=== PATIENT | female | born 2005 | race Two or more races ===

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

== ENCOUNTER 2024-09-05 17:22 | Emergency (ER) | payer OTHER, SELFPAY | END 2024-09-05 18:31 | disposition left against medical advice (07) | PROVIDERS: Emergency Provider Emergency Medicine | DX: Z53.21 Procedure and treatment not carried out due to patient leaving prior to being seen by health care provider (principal) ==

== ENCOUNTER 2024-11-19 07:35 | Emergency (ER) | payer OTHER, SELFPAY ==
[2024-11-19 07:46] VITALS: BP 119/67; PULSE 110; RESP 18; TEMP 37.6; O2SAT 97; BMI 24.2
--- NOTE | 2024-11-19 08:01 | ED_ITS ---
HPI - General Chief complaint: OB Stated complaint: N/V,DIZZY,23W ,H/O 3 MISCARRIAGES Time Seen by Provider: 11/19/24 08:09 Source: patient, family, EMS, RN notes reviewed and old records reviewed History of Present Illness ED Provider: Paz France PA-C HPI Narrative: 19-year-old female with a past medical history of GERD, anxiety, at 23 weeks gestation followed by [facility], presenting to the ED complaining of rhinorrhea, sore throat, nausea, vomiting, and low back pain since 02:00. Reports inability to tolerate p.o. secondary to nausea. Denies abdominal pain, vaginal bleeding/discharge, dysuria/hematuria Related Data Home Medications ?Medication ?Instructions ?Recorded ?Confirmed ibuprofen 200 mg capsule 200 mg PO Q6H PRN 04/07/21 1 03/30/21 Previous Rx's ?Medication ?Instructions ?Recorded ondansetron 4 mg disintegrating 4 mg PO Q8H PRN nausea and 09/04/20 tablet vomiting #7 tabs ondansetron HCl 4 mg tablet 4 mg PO Q8H PRN nausea and 08/28/22 vomiting 4 days #7 tabs cephalexin 250 mg capsule 250 mg PO Q6H 5 days #20 cap s 11/19/24 pyridoxine (vitamin B6) 25 mg 25 mg PO TID PRN nausea and 11/19/24 tablet vomiting #14 tabs Allergies Allergy/AdvReac Type Severity Reaction Status Date / Time No Known Allergies Allergy Verified 11/19/24 07:48 Review of Systems 2 Review of Systems: Yes all other systems are reviewed and are negative Constitutional: Constitutional: Reports as per [facility] Past Medical History Attestation statement: The following information was validated with the patient. Source: old records reviewed Medical History COVID-19 GERD (gastroesophageal reflux disease) Lactose intolerance Anxiety Cognitive impairment Surgical History No significant past surgical history Family History Family History Mother No problems noted. Social History Social History Alcohol intake: never Substance Use Type: Marijuana Advance Directives: No Advance Directives Information Provided: Yes Physical Exam 2 Vital Signs: Vital Signs: Last Vital Signs Temp 99.2 F 11/19/24 10:12 Pulse 88 11/19/24 10:12 Resp 16 11/19/24 10:12 BP 102/56 L 11/19/24 10:12 Pulse Ox 98 11/19/24 10:12 O2 Del Method Room Air 11/19/24 10:12 BMI result Body Mass Index 24.2 Const: Other: Actively vomiting General: cooperative and no acute distress Orientation/consciousness: p atient oriented x3 Limitations: no limitations HEENT: Head: Yes normal to inspection and Yes atraumatic Ears: hearing grossly normal bilaterally General nose exam: Normal external nose present Face and sinus: Yes normal facial exam Eyes: General: appearance normal, both eyes and all related structures EOM: EOMs intact bilaterally Neck: Neck: Yes normal visual inspection and Yes no meningeal signs Resp: Effort & Inspection: normal respiratory effort and no respiratory distress Cardio: Rate: tachycardic Heart sounds: S1 normal heart sound present and S2 normal heart sound present GI: Inspection: Yes normal to inspection Palpation (GI): Soft to palpation, Tenderness to palpation present (GI) suprapubicly (pressure), no guarding and not rigid : General: Yes no CVA tenderness Back/Spine/Pelvis: Back: no CVA tenderness Skin: Rashes: no rashes Wounds: no wounds Neuro: General: patient oriented x3, tone normal and no meningeal signs C ranial nerves: Yes CN's II-XII intact bilaterally Gait exam (Neuro): Normal gait present Extrem: General: Yes normal to inspection Course Course Course Narrative: -FHR 150 -no leukocytosis. H/H stable. Labs otherwise reassuring. COVID/flu/RSV and rapid strep negative -UA with trace leuk esterase and WBCs > will tx w/PO abx -on re-evaluation reports mild improvement in nausea, no vomiting since ED arrival. -902--spoke with [facility] transfer line. Awaiting callback. No capability of monitoring at our facility -spoke with OBGYN attending Dr. Watkins at [facility] who does not believe patient needs transfer for additional care. > this was discussed with patient at length > patient reports symptomatic improvement since ED arrival. No emesis since arrival. Is tolerating p.o. juice and crackers. Discussed with patient close OB follow-up, states she has an appointment tomorrow. Discussed to present to [facility] if develops any pain, bleeding, discharge, persistent or worsening nausea/vomiting or inability to tolerate p.o. Medications Administered Discontinued Medications Generic Name Dose Route Start Last Admin Trade Name Keeganq PRN Reason Stop Dose Admin Diphenhydramine HCl 25 mg 11/19/24 07:55 11/19/24 08:09 Diphenhydramine Hcl 50 Mg/Ml Vial IVPUSH 11/19/24 07:56 25 mg ONCE ONE Administration Sodium Chloride 1,000 mls @ 999 mls/hr 11/19/24 08:00 11/19/24 10:29 Ns IV 11/19/24 09:00 Infused .Q1H1M LUIS Infusion Sodium Chloride 1,000 mls @ 999 mls/hr 11/19/24 08:15 11/19/24 11:33 Ns IV 11/19/24 09:15 Infused .Q1H1M LUIS Infusion Pyridoxine HCl 25 mg 11/19/24 07:55 11/19/24 08:09 Pyridoxine Hcl (Vitamin B6) 50 Mg Tablet PO 11/19/24 07:56 25 mg ONCE ONE Administration Medical Decision Making Medical Decision Making MDM Narrative: 19-year-old female with a past medical history of GERD, anxiety, at 23 weeks gestation follow up by [facility], presenting to the ED complaining of rhinorrhea, sore throat, nausea, vomiting, and low back pain since 02:00. On exam tachycardic, low-grade temp 99.7 degrees, actively vomiting during initial evaluation, gravid uterus with suprapubic pressure, abdomen nontender. No CVAT. Concern for viral illness vs strep pharyngitis vs hyperemesis/metabolic abnormalities and dehydration. Rule out threatened . Lower suspicion for diverticulitis, renal stone, pyelo or appendicitis at this time Plan: Labs, UA, viral testing/rapid strep, FHR, consult patient's OBGYN with anticipated transfer Please refer to course for remaining clinical decision making, interpretation of labs/imaging results, and discussions with consultants and/or family members. Differential Diagnosis Differential Diagnoses: The differential diagnosis associated with the presentation includes As above Admission/Observation Consideration of admission/observation: Escalation of care including admission/observation considered Consult Healthcare Provider Management of the patient was discussed with: Greenhouse Manager Lab Data MDM Lab Attestation statement: I reviewed the patient's lab results. 11/19/24 07:58 11/19/24 07:58 Labs: Lab Results 11/19/24 11/19/24 11/19/24 Range/Units 07:58 08:04 08:31 WBC 8.6 (4.8-10.8) X10*3/uL RBC 3.46 L (4.20-5.50) X10*6/uL Hgb 10.2 L (12.0-16.0) g/dl Hct 30.4 L (37.0-47.0) % MCV 87.9 (80.0-98.0) fL MCH 29.5 (27.0-33.0) pg MCHC 33.6 (31.0-35.0) g/dl RDW 13.9 (11.0-16.0) % Plt Count 109 L (160-400) X10*3/uL MPV 11.9 (9.4-12.3) fL Immature Gran % (Auto) 0.2 (0.0-0.4) % Neut % (Auto) 86.7 H (45-73) % Lymph % (Auto) 6.0 L (20-40) % [place] % (Auto) 5.6 (2-11) % Eos % (Auto) 1.3 (0-4) % Baso % (Auto) 0.2 (0-2) % Lymph # (Auto) 0.5 L (1.2-4.9) X10*3/uL [place] # (Auto) 0.5 (0.1-1.2) X10*3/uL Eos # (Auto) 0.1 (0.0-0.4) X10*3/uL Baso # (Auto) 0.0 (0.0-0.2) X10*3/uL Abs Immat Gran (auto) 0.02 (0.00-0.03) X10*3/uL Absolute Neuts (auto) 7.4 (2.0-8.3) x10*3/uL Absolute Nucleated RBC 0.000 (0.0-0.012) X10*3/uL Nucleated RBC % (auto) 0.0 (0.0-0.2) /100WBC Sodium 136 (135-145) mmol/L Potassium 3.7 (3.3-5.1) mmol/L Chloride 109 H (96-108) mmol/L Carbon Dioxide 18 L (22-29) mmol/L Anion Gap 13 (12-20) BUN 5 L (9-16) mg/dL Creatinine 0.48 L (0.5-1.4) mg/dL Estim Creat Clear Calc 146.6 Estimated GFR > 60 Random Glucose 96 (60-115) mg/dL Calcium 8.6 D (8.4-10.2) mg/dL Magnesium 1.8 (1.6-2.6) mg/dL Total Bilirubin 0.5 (0.0-1.0) mg/dL Direct Bilirubin 0.1 (0.0-0.5) mg/dL AST 30 (5-31) U/L ALT 11 (0-31) U/L Alkaline Phosphatase 55 (39-117) U/L Total Protein 6.4 L (6.5-8.0) g/dL Albumin 3.6 (3.5-5.0) g/dL Lipase 15 (8-78) U/L Beta HCG, Quant 51855 mIU/mL Urine Color Yellow Urine Appearance Clear Urine pH 8.5 (5.0-9.0) Ur Specific [place] 1.015 (1.005-1.025) Urine Protein Negative (Neg-Trace) mg/dL Urine Glucose (UA) Negative (Negative) mg/dL Urine Ketones Negative (Negative) mg/dL Urine Blood Negative (Negative) Urine Nitrite Negative (Negative) Ur Leukocyte Esterase Trace H (Negative) Urine RBC 0-2 (0-2) /HPF Urine WBC 6-10 H (0-5) /HPF Ur Squamous Epith Cells 3-5 (0-2) /HPF Urine Bacteria None Seen (None Seen) Hyaline Casts 0-2 (0-2) /LPF Influenza Type A (PCR) NEGATIVE (Negative) Influenza Type B (PCR) NEGATIVE (Negative) RSV RNA Qual (PCR) NEGATIVE (Negative) SARS-CoV-2 RNA (RT-PCR) NEGATIVE (Negative) S. pyogenes GrpA ALAINA Negative (Negative) Radiology Impression Discussion of test interpretation with radiology: I have reviewed the radiologist's reading. External Record Review External record reviewed: Inpatient record, Office record, Outpatient record, Prior outpatient labs, Prior outpatient radiology, Primary care record and Outside ED record Tests considered The following testing was considered but not selected: As above Prescription Management I considered prescription management with: Other Chronic Conditions Patient?s care impacted by: Other Social Determinants Patient?s care significantly limited by Social Determinants of Health including: Other Social Determinant of Health Discharge Plan Discharge Clinical Impression: Nausea and vomiting during , Urinary tract infection during Patient Disposition: Home, Self-Care Additional Instructions: Your blood work is reassuring Your urine is slightly infected. Keflex as an antibiotic please take as prescribed until completion. Vitamin B6 will help with nausea and vomiting Please have close follow-up with your OB tomorrow as scheduled If her symptoms persist or worsen you develop any abdominal pain, vaginal bleeding/discharge, persistent nausea/vomiting, you are unable to eat or drink or fevers return to the ED immediately Prescriptions: New cephalexin 250 mg capsule 250 mg PO Q6H 5 Days Qty: 20 0RF pyridoxine (vitamin B6) 25 mg tablet 25 mg PO TID PRN (Reason: nausea and vomiting) Qty: 14 0RF No Action ondansetron HCl 4 mg tablet 4 mg PO Q8H PRN (Reason: nausea and vomiting) 4 Days Qty: 7 0RF ondansetron 4 mg tablet,disintegrating 4 mg PO Q8H PRN (Reason: nausea and vomiting) Qty: 7 0RF Rx Instructions: take 1-2 tabs sublingual q8 hrs prn ibuprofen 200 mg capsule 200 mg PO Q6H PRN Referrals: Neelima Skelton CNM [Certified Nurse Street Light Servicer, GEOSPATIAL ENGINEER] - 1 day Discharge Date/Time: 11/19/24 11:39 Print Language: Czech
[2024-11-19 08:08] LABS: MANUAL DIFF FLAG NO
[2024-11-19 08:15] LABS: Hematocrit 30.4 % (37.0-47.0); Hemoglobin 10.2 g/dl (12.0-16.0); Imm Gran Abs Auto 0.02 X10*3/uL (0.00-0.03); Imm Gran Pct Auto 0.2 % (0.0-0.4); Lymphocytes Absolute Auto 0.5 X10*3/uL (1.2-4.9); Mean Corpuscular HGB Conc 33.6 g/dl (31.0-35.0); Mean Corpuscular Hemoglobin 29.5 pg (27.0-33.0); Mean Corpuscular Volume 87.9 fL (80.0-98.0); NRBC Abs Auto 0.000 X10*3/uL (0.0-0.012); NRBC Pct Auto 0.0 /100WBC (0.0-0.2); Platelet Count 109 X10*3/uL (160-400); Red Blood Count 3.46 X10*6/uL (4.20-5.50); White Blood Count 8.6 X10*3/uL (4.8-10.8)
--- OUTSIDE RECORDS SUMMARY | 2024-11-19 08:27 | XMS_ITS | Clinical Summary ---
Author Organization [facility] [address] [facility] [address] Address [address] [place] [address] Phone Care Team Providers Care Community Organization Director Name Role Phone Mick Johnson MD Primary Care Provider Allergies No known active allergies Medications vit no.[id number] ( Plus Vitamin-Mineral) 27 mg iron- 1 mg tabletIndication s:Missed menses Take 1 tablet by mouth 1 (one) time each day. 90 tablet 3 07/12/2024 Active Vitamin Plus Low Iron 27 mg iron- 1 mg tablet Take 1 tablet by mouth 1 (one) time each day. 08/13/2024 Active ferrous gluconate (FERGON) 324 mg (38 mg iron) tablet Take 1 tablet (324 mg total) by mouth 1 (one) time each day. 90 each 3 11/06/2024 Active Active Problems Problem Noted Date Diagnosed Date cardiac echogenic focus, antepartum 2024 Overview (11/07/2024): Isolated finding in settng of normal/low risk aneuploidy screen Thrombocytopenia affecting p regnancy, antepartum ([facility] V24) 11/06/2024 Anemia, antepartum 11/06/2024 Overview (11/06/2024): 11/06/2024 start iron once daily Injury of hand 08/20/2024 History of multiple miscarriages 08/20/2024 Overview (08/20/2024): SAB x3 in 10/2021; 2022; 08/2023 pt denies any bleeding/spotting pelvic pain or cramping at this time. Pt to call back if any Sx of concern Encounter for supervision of other normal , first trimester 08/15/2024 Overview (11/06/2024): 1. [facility] site: [facility] ObGyn: [address] [place] [address], [place] [address] ([phone]) 2. Delivery site: [facility] 3. Mobile Mommas: No 4. Dating criteria: LMP 5. Blood type: Unknown 6. Genetic screening: Date: Result: Panorama: Low risk panorama, XX Horizon: already done in previous 07/24/23 negative x14 Nuchal: Scheduled Survey: MSAFP: Negative 6. GBS: Date: 7. FOB name: Matthew Richardson, 8. Plans A. Epidural or other pain management - open B. Labor support identified - Matthew Richardson C. Tdap - Date: Flu - Date: D. Breast or Bottle feed: and formula E. Baby's name - F. Circumcision - yes 9. Hospital Course: Maternal varicella, non-immune 07/25/2023 Overview (07/11/2024): Vaccinate PP Estimated Date of Delivery Comme nts Yes 03/17/2025 Based on last me nstrual period of 06/10/2024 (Exact Date) Resolved Problems Problem Noted Date Diagnosed Date Resolved Date Encounter for supervision of other normal , first trimester 08/20/2024 08/20/2024 Encounters Date Type Department Care Team Description 11/07/2024 10:00 AM EDT Ancillary Procedure Maternal Medicine - [address] [phone] Encounter for supervision of other normal in second trimester; Encounter for screening for malformations; Echogenic focus of heart of fetus affecting antepartum care of mother, single gestation; Encounter for screening for cervical length; Short cervix during in second trimester 10/23/2024 1:45 PM EDT Routine Obstetrics and Gynecology - [address] [phone] Yarelis Rick CNM Encounter for supervision of other normal in second trimester (Primary Dx); Screen for STD (sexually transmitted disease); Screening for depression; Screening for malignant neoplasm of cervix; Abnormal appearance of cervix; Low platelet count ([facility] V24); Vaginal odor; Maternal varicella, non-immune 10/09/2024 Telephone Obstetrics & Gynecology - [address] [address] Yarelis Rick CNM 09/10/2024 9:00 AM EDT Ancillary Procedure Maternal Medicine [address] [phone] Encounter for screening for nuchal translucency; Encounter for screening for malformations; Encounter for supervision of other normal , first trimester; Encounter for anatomic survey 08/26/2024 Telephone Obstetrics and Gynecology - [address] [phone] Josefina Leigh RN 08/20/2024 10:00 AM EDT Clinical Support Obstetrics and Gynecology - [address] [phone] Encounter for screening for nuchal translucency (Primary Dx); Encounter for screening for malformations; Encounter for screening of mother; Encounter for supervision of other normal , first trimester; History of multiple miscarriages from Last 3 Months Medical History Medical History Date Comments History of multiple miscarriages 08/2023 SAB x3 in 10/2021; 2022; 08/2023 Family History Medical History Relation Name Comments Asthma Brother 1 Darek No Known Problems Brother 2 Janian No Known Problems Father No Known Problems Half-Brother 1 Darek No Known Problems Half-Brother 2 eddy No Known Problems Half-Brother 3 Natthan No Known Problems Half-Brother 4 Zayko No Known Problems Half-Sister Luceida No Known Problems Maternal Grandfather Diabetes Maternal Grandmother No Known Problems Mother No Known Problems Paternal Grandfather No Known Problems Paternal Grandmother Relation Name Status Comments Brother 1 Darek Alive Brother 2 Janian Alive Father Alive Half-Brother 1 Darek Alive Half-Brother 2 eddy Alive Half-Brother 3 Natthan Alive Half-Brother 4 Lucia Alive Half-Sister Margo Alive Maternal Grandfather Alive Maternal Grandmother Alive Mother Alive Paternal Grandfather Alive Paternal Grandmother Alive Social History Tobacco Use Types Packs/Day Years Used Date Smoking Tobacco: Never Smokeless Tobacco: Never Alcohol Use Standard Drinks/Week Comments Not Currently 0 (1 standard drink = 0.6 oz pur e alcohol) Estimated Date of Delivery Comme nts Yes 03/17/2025 Based on last me nstrual period of 06/10/2024 (Exact Date) Sex and Gender Information Value Date Recorded Sex Assigned at Not on file Legal Sex Female 11:37 PM EST Gender Identity Not on file Sexual Orientation Not on file Obstetrics History * This document contains information received from the source organization and may not represent a complete record from that organization. Para Term AB IAB SAB Ectopic Multiple Livin g Live Births 4 0 0 0 0 0 0 0 Date Outcome GA Total Labor Labor/2nd/3rd Weight Sex Type Anes PTL Serena A1 A5 Name Clin 09/2021 2022 024 Current Summary Episode Dates Number of Fetuses Estimated Date of Delivery 08/20/2024 - Present (11/19/2024) 03/17/2025 (set by Josefina Leigh RN on 08/20/2024 based on Last Menstrual Period on 06/10/2024 (Exact Date)) Dating Summary Based On JIM GA Diff Last Menstrual Period on 06/10/2024 (Exact Date) 03/17/2025 Working Alternate JIM Entry 03/17/2025 Same Comment:Date entered prior t o episode creation Overview and Plan Delivery Plans Post-Delivery Plans Planned delivery method:Vaginal Feeding intentions:Breast and Formula Feeding Planned anesthesia:Epidural Circumcision requested:Provider Performed Acceptable blood products:All Vitals Pregravid Weight Height TWG (As of 11/19/2024) Pregrav id BMI 48.3 kg (106 lb 7 oz) 1.575 m (62 ) 4.247 kg (9 lb 5.8 oz) 19.46 Date GA Fund Present FHR Mvmt BP Weight Edema Alb Glu Ket Dil/ Eff/Sta 10/23/2024 19w2d 120/62 52.5 kg 0// Notes Progress Notes - Routine Pre - 10/23/2024 - GA:19w2d 10/23/2024 - 19w2d - Yarelis Rick CNM OB 19 week appt IP: S: Orestes is a 18 y.o. year old here for IP visit with her boyfriend. Her is unplanned. She and the father of the baby are happy. Missed initial IP appt due to location mix up Had 1st T scan and NL wnl, dating consistent. She was seen in [facility] triage on 2 days ago for spotting, now resolved. States she was tested for HSV due to appearance of cervix with bleeding and instructed to abstain from sex. . Patient's last menstrual period was 06/10/2024 (exact date). She is certain of her LMP with regular cycles. is currently dated by LMP confirmed by 1st trimester ultrasound. O: Blood pressure 120/62, weight 52.5 kg, last menstrual period 06/10/2024, not currently . See OB physical and labs. Vitals BP: 120/62 (P: 75) Weight: 52.5 kg Assessment Heart Rate: 150 Fundal Height (cm): 18 cm Movement: Present Vaginal Drainage Leaking Fluid: No Dilation/Effacement/Station Dilation: Closed No results found for: ABORH Lab Results Component Value Date RH Positive 08/20/2024 APPEARANCE: Alert and in no acute distress, healthy, cooperative NECK: Neck supple, no adenopathy, thyroid symmetric and of normal size. HEART: RRR LUNG: Assessment: No increased work of breathing or signs of respiratory distress Auscultation: CTA bilat BREAST: normal without suspicious masses, skin or nipple changes or axillary nodes. ABDOMEN: soft, non-tender, without organomegaly or palpable masses LYMPHATICS: no inguinal adenopathy COOPERER: Normal external genitalia and urethra Vagina : creamy white discharge Normal cervix : friable and cauliflower cluster from 12-1o'clock. Though pt 18 yo , PAP obtained today Uterus 18 cm RECTAL: without lesion, hemorrhoid, prolapse BACK: No pain to palpation with good flexion and extension EXTREMITIES: Extremities warm and well perfused without cyanosis, or edema NEURO: Awake, alert and oriented x 3 SKIN: Skin color, texture, turgor normal. No rashes or lesions. This is to document that Orestes Rosario was given the opportunity to have a grant specialist present during a sensitive examination at today's visit. She declines this offer of a grant specialist. A: at 19w2d weeks gestation. 1. Encounter for supervision of other normal in second trimester 2. Screen for STD (sexually transmitted disease) 3. Screening for depression 4. Screening for malignant neoplasm of cervix 5. Abnormal appearance of cervix 6. Low platelet count ([facility] V24) 7. Vaginal odor P: Pap obtained today. Genprobe obtained today. Abstain from sex until all testing complete Repeat cbc and refer to hem/onc if indicated. Oriented to THoNE MG and anticipated course. Discussed collaborative practice and [facility] delivery. Reviewed healthy eating and normal weight gain in . Encouraged patient to push PO fluids. Counseled about warning signs of the second trimester and how to contact environmental resource specialist provider. Discussed the benefits of breast feeding and strongly encouraged to consider this. Counseled regarding the diagnosis of anomalies. She was offered a referral to maternal medicine for nuchal lucency/[place] testing. She completed the referral. Will vaccinate varicella pp RTO 4 weeks. The patient may require anesthesia consult due to low platelets, to be rechecked today. . This patient's VTE risk status is low. [place] Depression Scale: In the Past 7 Days I have been able to laugh and see the funny side of things.: As much as I always could I have looked forward with enjoyment to things.: As much as I ever did I have blamed myself unnecessarily when things went wrong.: No, never I have been anxious or worried for no good reason.: Yes, sometimes I have felt scared or panicky for no good reason.: No, not at all Things have been getting on top of me.: No, most of the time I have coped quite well I have been so unhappy that I have had difficulty sleeping.: Not at all I have felt sad or miserable.: No, not at all I have been so unhappy that I have been crying.: No, never The thought of harming myself has occurred to me.: Never [place] Depression Scale Total: 3 [place] SCREENING CHARGE (Clinic Only): [id number] Yarelis Rick CNM on 10/23/2024 at 4:28 PM EDT Progress Notes - Clinical Lin pport - 08/20/2024 - GA:10w1d 08/20/2024 - 10w1d - Josefina Leigh RN Orestes Rosario is a 18 y.o. old female at 10w1d. This is [place]. The patient feels happy about the . The FOB is supportive and happy. Patient's last menstrual period was Patient's last menstrual period was 06/10/2024 (exact date). which would make her currently 10w1d with an Estimated Date of Delivery: 03/17/25. She is certain of her date. An ultrasound has not been ordered to confirm dating Patient has significant history of: SAB x3 in 10/2021; 2022; 08/2023 pt denies any bleeding/spotting pelvic pain or cramping at this time. Pt to call back if any Sx of concern Planning to have a gender reveal please call pt before uploading into the chart, her Mother in Law Arianna Robbins will pickling tank operator the envelope per Orestes's request as she is planning the gender reveal Wic letter give to pt today Planned :Yes FOB name/age/phone #: Matthew Richardson, 10/03/2004 [phone] Lives with: NANO Norman Other Children: Support system in place:Yes Pets:No Occupation: stay at home FOB occupation: bench mechanic at [employer] Pt Smoker/Substance Use: No, quit FOB Smoker/Substance Use:Yes, not around the pt OB Past Medical History: Have you had or do you currently have: Diabetes? No Hypertension? No Heart disease, Mitral valve Prolapse, or Rheumatic fever? No An Autoimmune disease such as Lupus or Rheumatoid Arthritis? No Epilepsy, Seizures, or Spells? No Migraine Headaches? No Stroke or loss of function or sensation? No Additional Questions: Have you ever been treated for anxiety and/or depression? No Are you having problems with crying spells or loss of self-esteem? No Have you ever required psychiatric care? No Have you ever had hepatitis, liver disease or jaundice? No Have you ever been treated for blood clots in your veins, deep venous thrombosis, inflammation in the veins, thrombosis, phlebitis, pulmonary embolism or varicosities? No Have you had excessive bleeding after surgery or dental work? No Do you bleed more than other women after a cut or scratch? No Do you have a history of anemia? No Have you ever had Thyroid problems or taken Thyroid medications? No Do you have any other Endocrine Problems (ie. PCOS)? No Have you ever been in a major accident or suffered serious trauma? No Within the last year, has anyone hit, slapped, kicked or otherwise hurt you? No In the last year, has anyone forced you to have sex when you didn't want to? No Do you feel safe at home? Yes Have you ever received a blood transfusion? No Would you refuse a blood transfusion if a doctor judged to be medically necessary? No Would you rather than receive a blood transfusion? No If you answered yes to the above questions, is this for evangelical reasons? N/A Do you know what your blood type is or if you are Rh Negative? unknown Have you ever had abnormal antibodies in your blood? unknown Have you ever had asthma? No Have you every had Tuberculosis? No Have you ever had any breast problems? No Have you ever breast fed? N/A Have you ever had any gynecological surgical procedures such as cervical conization, LEEP procedure, Laser treatment, cryosurgery of the cervix or dilation and curettage, etc? No Have you had any other surgical procedures? No Have you ever been hospitalized overnight for a non-surgical reason excluding normal delivery? No Have you ever had anesthesia complications? No Have you ever had an abnormal pap smear? No Do you have a history of abnormalties of the uterus? No Did your mother take TANYA or any other hormones when she was with you? No Did it take more than one year to become ? No Have you ever been evaluated or treated for infertility? No Is there a history of medical problems in your family which you feel might adversely affect your health or ? No Do you have any other problems we have not asked you about which you feel may be important for us to know for this ? No Do you currently have any of the following symptoms since your last menstrual period: Abdominal pain, blood in the stool or urine, chest pain, shortness of breath, coughing or vomiting up blood, your heart racing or skipping beats, nausea and/or vomiting, pain on urination, or vaginal discharge or vaginal bleeding? Yes, nausea but getting better, but has its days Genetic Screening/Teratology Counseling- Includes patient, baby's father, or anyone in either family with: Patient's age 35 years or older as of estimated date of delivery No Thalassemia (Amharic, Estonian, Mediterranean, or background): MCV less than 80 No Neural tube defect (Meningomyelocele, Spina bifida, or Anencephaly) No Congenital heart defect No Down syndrome No Tayo-Sachs (Ashkenazi Baptist, Cajun, Lithuanian [place]) No Macho disease (Ashkenazi Baptist) No Familial dysautonomia (Ashkenazi Baptist) No Sickle cell disease or trait () No Hemophilia or other blood disorders No Muscular dystrophy No Cystic fibrosis No Cummaquid's chorea No Intellectual disability and/or autism No If yes, was the person tested for Fragile X? N/A Other inherited genetic or chromosomal disorder No Maternal metabolic disorder (eg. Type 1 diabetes, PKU) No Patient or baby's father had child with defects not listed above No Recurrent loss, or a stillbirth No Medications (including supplements, vitamins, herbs, or OTC drugs)/illicit/recreational drugs/alcohol since last menstrual period No If yes, agent(s) and strength/dosage: Any other No OB Infection History: Do you object to being tested for Hepatitis B? No Do you object to being tested for HIV? No Do you feel that you are at high risk for coming contact with the AIDS virus? No Have you ever been treated for tuberculosis? No Have you ever received the BCG vaccine? No Have you ever had a positive skin test for Tuberculosis? No Do you live with someone who has Tuberculosis? No Have you ever been exposed to Tuberculosis? No Do you have Genital Herpes? No Does your partner have Genital Herpes? No Have you had a rash or viral illness since your last period? No Have you ever had Gonorrhea, Chlamydia, Syphilis, Venereal Warts, Trichomoniasis, Pelvic Inflammatory Disease (PID) or any other sexually transmitted disease? No Do you know if you are a Group B Streptococcus Carrier? unknown Did you have the Chicken Pox/Varicella? no Were you vaccinated against Chicken Pox/Varicella? no Have you had any other infectious diseases? No Orestes Rosario has been instructed on the following: random urine drug screening rn workup and an initial urine drug screen has been ordered., She has been counseled regarding avoiding hazards, litter boxes, smoking, drug and alcohol use during Orestes Rosario has also been informed of the writer editor provider recommendation for first trimester nuchal lucency testing to be performed during her . Orestes Rosario has also been made aware of the time sensitive nature for this testing to be completed. . The patient now has a gestational age of 10w1d. The patient would be due for this testing prior to 14 weeks gestation which would be on 09/10/24 9am in [place] Ethnicity Based Genetic Testing has been reviewed and the [employer] information sheet has been provided to the patient in their After Visit Summary. The patient was also advised that genetic testing may not be covered by all insurances. The patients states that they understand this information. The patient states that she has had the genetic screening for Horizon 14 done in the past during a previous . Results were negative. The patient has agreed that she does not want genetic testing for Horizon 14 The following Labs have been ordered: Obstetric Panel, HIV with verbal Consent, Hepatitis C, Varicella titer, Urine Culture, UDS, and Panorama with gender She is aware that her insurance may or may not cover Panorama and/or Horizon 14 test and discussed turner only kessler for test(s) - info given today in her after visit summary . She would like to proceed with testing. For Horizon Carrier Screening, if patient has [employer], [facility] or [employer] insurances: Not Applicable Electronically signed by: Josefina Leigh RN 08/20/24 10:21 AM EDT Last Filed Vital Signs Vital Sign Reading Time Taken Comments Blood Pressure 120/62 10/23/2024 2:06 PM EDT P: 75 Pulse 80 08/20/2024 10:20 AM EDT Temperature - - Respiratory Rate 20 08/20/2024 10:2 0 AM EDT Oxygen Saturation - - Inhaled Oxygen Concentration - - Weight 52.5 kg (115 lb 12.8 oz) 10/23/2024 2:06 PM EDT Height 157.5 cm (5' 2 ) 08/20/2024 10:2 0 AM EDT Body Mass Index 21.18 08/20/2024 10:20 AM EDT Plan of Treatment Upcoming Encounters Date Type Department Care Team (Late st Contact Info) Description 11/20/2024 10:30 AM EDT Routine Obstetrics & Gynecology - [facility] [address] [place] [phone] Neelima Skelton, [facility] [address] [place] [address] 11/26/2024 1:00 PM EDT Ancillary Procedure Maternal Medicine - [address] [phone] 12/18/2024 11:00 AM EST Routine Obstetrics and Gynecology - [facility] [address] [place] [phone] Nhung Sagastume, CARLOS [address] [place] [phone] Health Maintenance Due Date Last Done Comments HPV Vaccines (1 - 3-dose series) 10/29/2018 Meningococcal B Vaccine (1 o f 2 - Standard) 2019 Annual Well Child Visit (3-2 1 years old) 01/16/2022 Social Influencers of Health Screening 01/16/2022 DTaP,Tdap,and Td Vaccines (1 - Tdap) 10/29/2022 Hepatitis B Vaccines (1 of 3 - 19+ 3-dose series) 10/29/2022 Depression Screening 02/14/2024 COVID-19 Vaccine (1 - 2023-2 5 season) 2024 Influenza Vaccine (#1) 2024 RSV Immunization Adult Patie nts (1 - Risk 1-dose series) 01/20/2025 Gonorrhea/Chlamydia Screening 10/23/2025 10/23/2024 Cervical Cancer Screening: P ap Smear 10/24/2027 10/23/2024 HIV Screening Completed 08/20/2024 Hepatitis C Screening Completed 08/20/2024 HIB Vaccines Aged Out No longer eligi ble based on patient's age to complete this topic Hepatitis A Vaccines Aged Out No long er eligible based on patient's age to complete this topic IPV Vaccines Aged Out No longer eligi ble based on patient's age to complete this topic Meningococcal ACWY Vaccine Aged Out N o longer eligible based on patient's age to complete this topic Pneumococcal Vaccine: Pediat rics (0 to 5 Years) and At-Risk Patients (6 to 49 Years) Aged Out No longer eligi ble based on patient's age to complete this topic RSV Immunization Patients Un jair 20 months Aged Out No longer eligible b ased on patient's age to complete this topic Procedures Procedure Name Priority Date/Time Associated Diagnosis Comments US OB TRANSVAGINAL Routine 11/07/2024 11 :04 AM EDT Echogenic focus of heart of fetus affecting antepartum care of mother, single gestation Encounter for screening for malformations Encounter for screening for cervical length Short cervix during in second trimester US OB DETAILED SINGLE OR FIRST GESTATION Routine 11/07/2024 11:04 AM EDT Echogenic focus of heart of fetus affecting antepartum care of mother, single gestation Encounter for screening for malformations Encounter for screening for cervical length Short cervix during in second trimester TRICHOMONAS VAGINALIS ANTIGEN Routine 10/23/2024 3:06 PM EDT Vaginal odor WET PREP, GENITAL Routine 10/23/2024 3:0 6 PM EDT Vaginal odor CBC WITH AUTO DIFFERENTIAL Routine 10/23/2024 2:59 PM EDT Encounter for supervision of other normal in second trimester Low platelet count (CMS/HCC V24) ALPHA FETOPROTEIN, MATERNAL Routine 10/23/2024 2:59 PM EDT Encounter for supervision of other normal in second trimester CBC AND DIFFERENTIAL Routine 10/23/2024 2:59 PM EDT Encounter for supervision of other normal in second trimester Low platelet count (CMS/HCC V24) PAP SMEAR Routine 10/23/2024 2:50 PM EDT Encounter for supervision of other normal in second trimester Screening for malignant neoplasm of cervix Abnormal appearance of cervix CHLAMYDIA TRACHOMATIS AND NEISSERIA GONORRHOEAE PCR Routine 10/23/2024 2:50 PM EDT Encounter for supervision of other normal in second trimester Screen for STD (sexually transmitted disease) US OB LESS 14 WKS SINGLE OR FIRST GESTATION Routine 09/10/2024 9:33 AM EDT Encounter for screening for nuchal translucency Encounter for screening for malformations Encounter for supervision of other normal , first trimester US OB 14+ WKS SINGLE OR FIRST GESTATION Routine 09/10/2024 Encounter for anatomic survey PANORAMA TEST Routine 8:32 AM EDT CBC WITH AUTO DIFFERENTIAL Routine 08/20/2024 11:39 AM EDT Encounter for screening of mother Encounter for supervision of other normal , first trimester VARICELLA ZOSTER ANTIBODY IGG Routine 08/20/2024 11:39 AM EDT Encounter for screening of mother Encounter for supervision of other normal , first trimester HEPATITIS B SURFACE ANTIGEN WITH CONFIRMATION Routine 08/20/2024 11:39 AM EDT Encounter for screening of mother Encounter for supervision of other normal , first trimester CBC AND DIFFERENTIAL Routine 08/20/2024 11:39 AM EDT Encounter for screening of mother Encounter for supervision of other normal , first trimester DRUG ABUSE SCREEN EXPANDED WITH REFLEX CONFIRMATION, URINE Routine 08/20/2024 11:39 AM EDT Encounter for screening of mother Encounter for supervision of other normal , first trimester HEPATITIS C ANTIBODY Routine 08/20/2024 11:39 AM EDT Encounter for screening of mother Encounter for supervision of other normal , first trimester HIV 1, 2 ANTIBODY, P24 ANTIGEN WITH REFLEX TO DIFFERENTIATION Routine 08/20/2024 11:39 AM EDT Encounter for screening of mother Encounter for supervision of other normal , first trimester RUBELLA ANTIBODY IGG Routine 08/20/2024 11:39 AM EDT Encounter for screening of mother Encounter for supervision of other normal , first trimester TREPONEMA PALLIDUM ANTIBODY WITH REFLEX TO RPR AND PARTICLE AGGLUTINATION Routine 08/20/2024 11:39 AM EDT Encounter for screening of mother Encounter for supervision of other normal , first trimester TYPE AND SCREEN Routine 08/20/2024 11:39 AM EDT Encounter for screening of mother Encounter for supervision of other normal , first trimester VENIPUNCTURE CHARGE Routine 08/20/2024 1 1:39 AM EDT Encounter for supervision of other normal , first trimester CULTURE URINE Routine 08/20/2024 11:39 AM EDT Encounter for screening of mother Encounter for supervision of other normal , first trimester from Last 3 Months Results * US OB Transvaginal (11/07/2024 11:04 AM EDT) Anatomical Region Laterality Modality Body Ultrasound 11/07/2024 10:0 6 AM EDT Narrative 11/07/2024 12:08 PM EDT OBSTETRICS REPORT (Signed Final 11/07/2024 12:08 pm) PATIENT INFO: ID #: [id number] : [birth year] (19 yrs)(F) Name: ORESTES ROSARIO Visit Date: 11/07/2024 10:06 am PERFORMED BY: Attending: Carley Anthony MD Performed By: Bo Walsh RDMS Referred By: Yarelis Rick [facility] Ref. Address: [address] [place] [address] Location: [facility]) SERVICE(S) PROVIDED: US Level II complete (Targeted OB) 18079 OB Transvaginal ultrasound 72267 INDICATIONS: Maternal care for other (suspected) O35.BXX0 abnormali Echogenic focus of heart of fetus affecting O35.BXX0 antepartum care of mother, jenkins Encounter for screening for Z36.3 malformations Encounter for screening for Z36.86 cervical length 21 weeks gestation of Z3A.21 TECHNIQUE/SCAN QUALITY: Technique: Transabdominal Scan Satisfactory Quality: OB HISTORY: : 4 SAB: 3 Livin VITAL SIGNS: Weight (lb) Height BMI 115 5'2 21.03 EVALUATION: Number Of Fetuses: 1 Cardiac Activity: Observed Presentation: Breech Placenta Location: Anterior Appearance: Grade 1 Relation to CVX: No previa Cord Insertion: Normal appearance Amniotic Fluid JEANETH FV: Within Normal Limits Comment: A >2 x 2 cm pocket of fluid is noted. BIOMETRY: BPD: 51.6 mm G.Age: 21w 5d 57 % HC: 194.8 mm G.Age: 21w 5d 52 % AC: 172.2 mm G.Age: 22w 1d 67 % FL: 34.2 mm G.Age: 20w 5d 19 % HUM: 34 mm G.Age: 21w 4d 52 % CER: 23.2 mm G.Age: 21w 4d 55 % NFT: 4.83 mm NB: 7.75 mm 62 % > 1 MoM LV: 6.2 mm CM: 5.2 mm OOD: 35.6 mm G.Age: 21w 1d 57 % CI: 71.2 % 70 - 86 FL/HC: 17.6 % 15.9 - 20.3 HC/AC: 1.13 1.06 - 1.25 FL/BPD: 66.3 % FL/AC: 19.9 % 20 - 24 Est. FW: 433 gm 0 lb 15 oz 51 % GESTATIONAL AGE: LMP: 21w 3d Date: 06/10/24 JIM: 03/17/25 U/S Today: 21w 4d JIM: 03/16/25 Best: 21w 3d Det. By: LMP (06/10/24) JIM: 03/17/25 DETAILED ANATOMY: Head / Neck Cranial Vault: Normal appearance Cavum Septi Pellucidi: Normal appearance Parenchyma: Normal appearance R. Lat. Ventricle: Normal appearance L. Lat. Ventricle: Normal appearance Corpus Callosum: Normal appearance Midline Falx: Normal appearance R. Choroid Plexus: Normal appearance L. Choroid Plexus.: Normal appearance Cerebellum: Normal appearance CCisterna Magna: Normal appearance Nuchal Fold: Normal appearance Neck: Normal appearance Face Face Profile: Normal appearance Nasal Bone: Normal appearance Coronal Face: Normal appearance Lips: Normal appearance Nose: Normal appearance Lenses: Normal appearance Orbits: Normal appearance Heart Cardiac Activity: Normal appearance Cardiac Rhythm: Normal appearance 4 Chamber View: Normal appearance R. Outflow Tract: Normal appearance L. Outflow Tract: Normal appearance Interventr. Septum: Normal appearance 3 Vessel View: Normal appearance 3V Trachea View: Normal appearance Cardiac Situs: Normal appearance Aortic Arch: Suboptimal views SVC: Normal appearance IVC: Normal appearance Ductal Arch: Normal appearance Crossing G. Ves.: Normal appearance Comment: Echogenic focus Thorax Lungs: Normal appearance Cardiac [place]: Normal appearance Diaphragm: Normal appearance Thoracic Contour: Normal appearance Abdomen Situs: Normal appearance Stomach: Normal appearance Bowel: Normal appearance Liver: Normal appearance Abdominal Wall: Normal appearance Urinary Bladder: Normal appearance R. Kidney: Normal appearance L. Kidney: Normal appearance R. Renal Artery: Normal appearance L. Renal Artery: Normal appearance Umbilical Cord: Normal Appearance UC Vessel Num.: Normal 3VC Cord Insertion: Normal appearance Spine Cervical: Suboptimal views Thoracic: Suboptimal views Lumbar: Suboptimal views Sacral: Suboptimal views Shape / Curvature: Suboptimal views Over. Soft Tissue: Suboptimal views Vertebral Body: Suboptimal views Extremities R. Humerus: Normal appearance L. Humerus: Normal appearance R. Forearm: Normal appearance L. Forearm: Normal appearance R. Hand: Normal appearance L. Hand: Normal appearance R. Femur: Normal appearance L. Femur: Normal appearance R. Lower Leg: Normal appearance L. Lower Leg: Normal appearance R. Foot: Normal appearance L. Foot: Normal appearance Other Genitalia: Female CERVIX UTERUS ADNEXA: Cervix Length: 3.57 cm. Long and closed Right Ovary Not visualized. Left Ovary Not visualized. COMMENTS: Ms. Rosario is being seen for anatomical survey. An intracardiac echogenic focus was seen and a detailed ultrasound was performed. - Her medical history is not contributory. 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 - She had cell free DNA screening. Results were low-risk for all conditions assessed. - Ultrasound findings: The biometry measures consistent with dates. Views of the spine and aortic arch are suboptimal. An intracardiac echogenic focus was seen on today's ultrasound. The remainder of the anatomical survey is appropriate for the gestational age. - The cervix was assessed for risk of and placental location with vaginal ultrasound. The cervix is long and closed without funneling or dynamic changes. The placenta is anterior and is not low lying nor a previa. - An echogenic focus is an isolated, discrete lesion in the area of the papillary muscle. Echogenic foci have been associated with aneuploidy; however, this is generally in a setting where there are other ultrasonically diagnosable features of aneuploidy. The focus itself usually persists throughout the and into the period; however, it does not compromise or cardiac function. In the setting of normal cell free DNA results and otherwise a normal detailed ultrasound, the echogenic focus is considered a normal variant. - Plan: She has been scheduled to complete the detailed ultrasound by obtaining views of the spine and aortic arch. Carley Anthony MD Electronically Signed Final Report 11/07/2024 12:08 pm Procedure Carley Gold MD - 11/07/2024 OBSTETRICS REPORT (Signed Final 11/07/2024 12:08 pm) PATIENT INFO: ID #: [id number] : [birth year] (19 yrs)(F) Name: ORESTES ROSARIO Visit Date: 11/07/2024 10:06 am PERFORMED BY: Attending: Carley Anthony MD Performed By: Bo Walsh RDMS Referred By: Yarelis Rick [facility] Ref. Address: [address] [place] [address] Location: [facility]) SERVICE(S) PROVIDED: US Level II complete (Targeted OB) 80894 OB Transvaginal ultrasound 18546 INDICATIONS: Maternal care for other (suspected) O35.BXX0 abnormali Echogenic focus of heart of fetus affecting O35.BXX0 antepartum care of mother, jenkins Encounter for screening for Z36.3 malformations Encounter for screening for Z36.86 cervical length 21 weeks gestation of Z3A.21 TECHNIQUE/SCAN QUALITY: Technique: Transabdominal Scan Satisfactory Quality: OB HISTORY: : 4 SAB: 3 Livin VITAL SIGNS: Weight (lb) Height BMI 115 5'2 21.03 EVALUATION: Number Of Fetuses: 1 Cardiac Activity: Observed Presentation: Breech Placenta Location: Anterior Appearance: Grade 1 Relation to CVX: No previa Cord Insertion: Normal appearance Amniotic Fluid JEANETH FV: Within Normal Limits Comment: A >2 x 2 cm pocket of fluid is noted. BIOMETRY: BPD: 51.6 mm G.Age: 21w 5d 57 % HC: 194.8 mm G.Age: 21w 5d 52 % AC: 172.2 mm G.Age: 22w 1d 67 % FL: 34.2 mm G.Age: 20w 5d 19 % HUM: 34 mm G.Age: 21w 4d 52 % CER: 23.2 mm G.Age: 21w 4d 55 % NFT: 4.83 mm NB: 7.75 mm 62 % > 1 MoM LV: 6.2 mm CM: 5.2 mm OOD: 35.6 mm G.Age: 21w 1d 57 % CI: 71.2 % 70 - 86 FL/HC: 17.6 % 15.9 - 20.3 HC/AC: 1.13 1.06 - 1.25 FL/BPD: 66.3 % FL/AC: 19.9 % 20 - 24 Est. FW: 433 gm 0 lb 15 oz 51 % GESTATIONAL AGE: LMP: 21w 3d Date: 06/10/24 JIM: 03/17/25 U/S Today: w 4d JIM: 03/16/25 Best: w 3d Det. By: LMP (06/10/24) JIM: 03/17/25 DETAILED ANATOMY: Head / Neck Cranial Vault: Normal appearance Cavum Septi Pellucidi: Normal appearance Parenchyma: Normal appearance R. Lat. Ventricle: Normal appearance L. Lat. Ventricle: Normal appearance Corpus Callosum: Normal appearance Midline Falx: Normal appearance R. Choroid Plexus: Normal appearance L. Choroid Plexus.: Normal appearance Cerebellum: Normal appearance CCisterna Magna: Normal appearance Nuchal Fold: Normal appearance Neck: Normal appearance Face Face Profile: Normal appearance Nasal Bone: Normal appearance Coronal Face: Normal appearance Lips: Normal appearance Nose: Normal appearance Lenses: Normal appearance Orbits: Normal appearance Heart Cardiac Activity: Normal appearance Cardiac Rhythm: Normal appearance 4 Chamber View: Normal appearance R. Outflow Tract: Normal appearance L. Outflow Tract: Normal appearance Interventr. Septum: Normal appearance 3 Vessel View: Normal appearance 3V Trachea View: Normal appearance Cardiac Situs: Normal appearance Aortic Arch: Suboptimal views SVC: Normal appearance IVC: Normal appearance Ductal Arch: Normal appearance Crossing G. Ves.: Normal appearance Comment: Echogenic focus Thorax Lungs: Normal appearance Cardiac [place]: Normal appearance Diaphragm: Normal appearance Thoracic Contour: Normal appearance Abdomen Situs: Normal appearance Stomach: Normal appearance Bowel: Normal appearance Liver: Normal appearance Abdominal Wall: Normal appearance Urinary Bladder: Normal appearance R. Kidney: Normal appearance L. Kidney: Normal appearance R. Renal Artery: Normal appearance L. Renal Artery: Normal appearance Umbilical Cord: Normal Appearance UC Vessel Num.: Normal 3VC Cord Insertion: Normal appearance Spine Cervical: Suboptimal views Thoracic: Suboptimal views Lumbar: Suboptimal views Sacral: Suboptimal views Shape / Curvature: Suboptimal views Over. Soft Tissue: Suboptimal views Vertebral Body: Suboptimal views Extremities R. Humerus: Normal appearance L. Humerus: Normal appearance R. Forearm: Normal appearance L. Forearm: Normal appearance R. Hand: Normal appearance L. Hand: Normal appearance R. Femur: Normal appearance L. Femur: Normal appearance R. Lower Leg: Normal appearance L. Lower Leg: Normal appearance R. Foot: Normal appearance L. Foot: Normal appearance Other Genitalia: Female CERVIX UTERUS ADNEXA: Cervix Length: 3.57 cm. Long and closed Right Ovary Not visualized. Left Ovary Not visualized. COMMENTS: Ms. Rosario is being seen for anatomical survey. An intracardiac echogenic focus was seen and a detailed ultrasound was performed. - Her medical history is not contributory. 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 - She had cell free DNA screening. Results were low-risk for all conditions assessed. - Ultrasound findings: The biometry measures consistent with dates. Views of the spine and aortic arch are suboptimal. An intracardiac echogenic focus was seen on today's ultrasound. The remainder of the anatomical survey is appropriate for the gestational age. - The cervix was assessed for risk of and placental location with vaginal ultrasound. The cervix is long and closed without funneling or dynamic changes. The placenta is anterior and is not low lying nor a previa. - An echogenic focus is an isolated, discrete lesion in the area of the papillary muscle. Echogenic foci have been associated with aneuploidy; however, this is generally in a setting where there are other ultrasonically diagnosable features of aneuploidy. The focus itself usually persists throughout the and into the period; however, it does not compromise or cardiac function. In the setting of normal cell free DNA results and otherwise a normal detailed ultrasound, the echogenic focus is considered a normal variant. - Plan: She has been scheduled to complete the detailed ultrasound by obtaining views of the spine and aortic arch. Carley Anthony MD Electronically Signed Final Report 11/07/2024 12:08 pm us Yarelis Rick [facility] IMG OB US PROCEDURES Final Re sult * US OB Detailed Single or First Gestation (11/07/2024 11:04 AM EDT) Anatomical Region Laterality Modality Body Ultrasound 11/07/2024 10:0 6 AM EDT Narrative 11/07/2024 12:08 PM EDT OBSTETRICS REPORT (Signed Final 11/07/2024 12:08 pm) PATIENT INFO: ID #: [id number] : [birth year] (19 yrs)(F) Name: ORESTES ROSARIO Visit Date: 11/07/2024 10:06 am PERFORMED BY: Attending: Carley Anthony MD Performed By: Bo Walsh RDMS Referred By: Yarelis Rick [facility] Ref. Address: [address] [place] [address] Location: [facility] SERVICE(S) PROVIDED: US Level II complete (Targeted OB) 31522 OB Transvaginal ultrasound 29220 INDICATIONS: Maternal care for other (suspected) O35.BXX0 abnormali Echogenic focus of heart of fetus affecting O35.BXX0 antepartum care of mother, jenkins Encounter for screening for Z36.3 malformations Encounter for screening for Z36.86 cervical length 21 weeks gestation of Z3A.21 TECHNIQUE/SCAN QUALITY: Technique: Transabdominal Scan Satisfactory Quality: OB HISTORY: : 4 SAB: 3 Livin VITAL SIGNS: Weight (lb) Height BMI 115 5'2 21.03 EVALUATION: Number Of Fetuses: 1 Cardiac Activity: Observed Presentation: Breech Placenta Location: Anterior Appearance: Grade 1 Relation to CVX: No previa Cord Insertion: Normal appearance Amniotic Fluid JEANETH FV: Within Normal Limits Comment: A >2 x 2 cm pocket of fluid is noted. BIOMETRY: BPD: 51.6 mm G.Age: 21w 5d 57 % HC: 194.8 mm G.Age: 21w 5d 52 % AC: 172.2 mm G.Age: 22w 1d 67 % FL: 34.2 mm G.Age: 20w 5d 19 % HUM: 34 mm G.Age: 21w 4d 52 % CER: 23.2 mm G.Age: 21w 4d 55 % NFT: 4.83 mm NB: 7.75 mm 62 % > 1 MoM LV: 6.2 mm CM: 5.2 mm OOD: 35.6 mm G.Age: 21w 1d 57 % CI: 71.2 % 70 - 86 FL/HC: 17.6 % 15.9 - 20.3 HC/AC: 1.13 1.06 - 1.25 FL/BPD: 66.3 % FL/AC: 19.9 % 20 - 24 Est. FW: 433 gm 0 lb 15 oz 51 % GESTATIONAL AGE: LMP: 21w 3d Date: 06/10/24 JIM: 03/17/25 U/S Today: w 4d JIM: 03/16/25 Best: w 3d Det. By: LMP (06/10/24) JIM: 03/17/25 DETAILED ANATOMY: Head / Neck Cranial Vault: Normal appearance Cavum Septi Pellucidi: Normal appearance Parenchyma: Normal appearance R. Lat. Ventricle: Normal appearance L. Lat. Ventricle: Normal appearance Corpus Callosum: Normal appearance Midline Falx: Normal appearance R. Choroid Plexus: Normal appearance L. Choroid Plexus.: Normal appearance Cerebellum: Normal appearance CCisterna Magna: Normal appearance Nuchal Fold: Normal appearance Neck: Normal appearance Face Face Profile: Normal appearance Nasal Bone: Normal appearance Coronal Face: Normal appearance Lips: Normal appearance Nose: Normal appearance Lenses: Normal appearance Orbits: Normal appearance Heart Cardiac Activity: Normal appearance Cardiac Rhythm: Normal appearance 4 Chamber View: Normal appearance R. Outflow Tract: Normal appearance L. Outflow Tract: Normal appearance Interventr. Septum: Normal appearance 3 Vessel View: Normal appearance 3V Trachea View: Normal appearance Cardiac Situs: Normal appearance Aortic Arch: Suboptimal views SVC: Normal appearance IVC: Normal appearance Ductal Arch: Normal appearance Crossing G. Ves.: Normal appearance Comment: Echogenic focus Thorax Lungs: Normal appearance Cardiac [place]: Normal appearance Diaphragm: Normal appearance Thoracic Contour: Normal appearance Abdomen Situs: Normal appearance Stomach: Normal appearance Bowel: Normal appearance Liver: Normal appearance Abdominal Wall: Normal appearance Urinary Bladder: Normal appearance R. Kidney: Normal appearance L. Kidney: Normal appearance R. Renal Artery: Normal appearance L. Renal Artery: Normal appearance Umbilical Cord: Normal Appearance UC Vessel Num.: Normal 3VC Cord Insertion: Normal appearance Spine Cervical: Suboptimal views Thoracic: Suboptimal views Lumbar: Suboptimal views Sacral: Suboptimal views Shape / Curvature: Suboptimal views Over. Soft Tissue: Suboptimal views Vertebral Body: Suboptimal views Extremities R. Humerus: Normal appearance L. Humerus: Normal appearance R. Forearm: Normal appearance L. Forearm: Normal appearance R. Hand: Normal appearance L. Hand: Normal appearance R. Femur: Normal appearance L. Femur: Normal appearance R. Lower Leg: Normal appearance L. Lower Leg: Normal appearance R. Foot: Normal appearance L. Foot: Normal appearance Other Genitalia: Female CERVIX UTERUS ADNEXA: Cervix Length: 3.57 cm. Long and closed Right Ovary Not visualized. Left Ovary Not visualized. COMMENTS: Ms. Rosario is being seen for anatomical survey. An intracardiac echogenic focus was seen and a detailed ultrasound was performed. - Her medical history is not contributory. 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 - She had cell free DNA screening. Results were low-risk for all conditions assessed. - Ultrasound findings: The biometry measures consistent with dates. Views of the spine and aortic arch are suboptimal. An intracardiac echogenic focus was seen on today's ultrasound. The remainder of the anatomical survey is appropriate for the gestational age. - The cervix was assessed for risk of and placental location with vaginal ultrasound. The cervix is long and closed without funneling or dynamic changes. The placenta is anterior and is not low lying nor a previa. - An echogenic focus is an isolated, discrete lesion in the area of the papillary muscle. Echogenic foci have been associated with aneuploidy; however, this is generally in a setting where there are other ultrasonically diagnosable features of aneuploidy. The focus itself usually persists throughout the and into the period; however, it does not compromise or cardiac function. In the setting of normal cell free DNA results and otherwise a normal detailed ultrasound, the echogenic focus is considered a normal variant. - Plan: She has been scheduled to complete the detailed ultrasound by obtaining views of the spine and aortic arch. Carley Anthony MD Electronically Signed Final Report 11/07/2024 12:08 pm Procedure Note Carley Anthony MD - 11/07/2024 OBSTETRICS REPORT (Signed Final 11/07/2024 12:08 pm) PATIENT INFO: ID #: [id number] : [birth year] (19 yrs)(F) Name: ORESTES ROSARIO Visit Date: 11/07/2024 10:06 am PERFORMED BY: Attending: Carley Anthony MD Performed By: Bo Walsh RDMS Referred By: Yarelis GONZALEZ Ref. Address: [address] [place] [address] Location: [facility] SERVICE(S) PROVIDED: US Level II complete (Targeted OB) 45407 OB Transvaginal ultrasound 07935 INDICATIONS: Maternal care for other (suspected) O35.BXX0 abnormali Echogenic focus of heart of fetus affecting O35.BXX0 antepartum care of mother, jenkins Encounter for screening for Z36.3 malformations Encounter for screening for Z36.86 cervical length 21 weeks gestation of Z3A.21 TECHNIQUE/SCAN QUALITY: Technique: Transabdominal Scan Satisfactory Quality: OB HISTORY: : 4 SAB: 3 Livin VITAL SIGNS: Weight (lb) Height BMI 115 5'2 21.03 EVALUATION: Number Of Fetuses: 1 Cardiac Activity: Observed Presentation: Breech Placenta Location: Anterior Appearance: Grade 1 Relation to CVX: No previa Cord Insertion: Normal appearance Amniotic Fluid JEANETH FV: Within Normal Limits Comment: A >2 x 2 cm pocket of fluid is noted. BIOMETRY: BPD: 51.6 mm G.Age: 21w 5d 57 % HC: 194.8 mm G.Age: 21w 5d 52 % AC: 172.2 mm G.Age: 22w 1d 67 % FL: 34.2 mm G.Age: 20w 5d 19 % HUM: 34 mm G.Age: 21w 4d 52 % CER: 23.2 mm G.Age: 21w 4d 55 % NFT: 4.83 mm NB: 7.75 mm 62 % > 1 MoM LV: 6.2 mm CM: 5.2 mm OOD: 35.6 mm G.Age: 21w 1d 57 % CI: 71.2 % 70 - 86 FL/HC: 17.6 % 15.9 - 20.3 HC/AC: 1.13 1.06 - 1.25 FL/BPD: 66.3 % FL/AC: 19.9 % 20 - 24 Est. FW: 433 gm 0 lb 15 oz 51 % GESTATIONAL AGE: LMP: 21w 3d Date: 06/10/24 JIM: 03/17/25 U/S Today: 21w 4d JIM: 03/16/25 Best: 21w 3d Det. By: LMP (06/10/24) JIM: 03/17/25 DETAILED ANATOMY: Head / Neck Cranial Vault: Normal appearance Cavum Septi Pellucidi: Normal appearance Parenchyma: Normal appearance R. Lat. Ventricle: Normal appearance L. Lat. Ventricle: Normal appearance Corpus Callosum: Normal appearance Midline Falx: Normal appearance R. Choroid Plexus: Normal appearance L. Choroid Plexus.: Normal appearance Cerebellum: Normal appearance CCisterna Magna: Normal appearance Nuchal Fold: Normal appearance Neck: Normal appearance Face Face Profile: Normal appearance Nasal Bone: Normal appearance Coronal Face: Normal appearance Lips: Normal appearance Nose: Normal appearance Lenses: Normal appearance Orbits: Normal appearance Heart Cardiac Activity: Normal appearance Cardiac Rhythm: Normal appearance 4 Chamber View: Normal appearance R. Outflow Tract: Normal appearance L. Outflow Tract: Normal appearance Interventr. Septum: Normal appearance 3 Vessel View: Normal appearance 3V Trachea View: Normal appearance Cardiac Situs: Normal appearance Aortic Arch: Suboptimal views SVC: Normal appearance IVC: Normal appearance Ductal Arch: Normal appearance Crossing G. Ves.: Normal appearance Comment: Echogenic focus Thorax Lungs: Normal appearance Cardiac [place]: Normal appearance Diaphragm: Normal appearance Thoracic Contour: Normal appearance Abdomen Situs: Normal appearance Stomach: Normal appearance Bowel: Normal appearance Liver: Normal appearance Abdominal Wall: Normal appearance Urinary Bladder: Normal appearance R. Kidney: Normal appearance L. Kidney: Normal appearance R. Renal Artery: Normal appearance L. Renal Artery: Normal appearance Umbilical Cord: Normal Appearance UC Vessel Num.: Normal 3VC Cord Insertion: Normal appearance Spine Cervical: Suboptimal views Thoracic: Suboptimal views Lumbar: Suboptimal views Sacral: Suboptimal views Shape / Curvature: Suboptimal views Over. Soft Tissue: Suboptimal views Vertebral Body: Suboptimal views Extremities R. Humerus: Normal appearance L. Humerus: Normal appearance R. Forearm: Normal appearance L. Forearm: Normal appearance R. Hand: Normal appearance L. Hand: Normal appearance R. Femur: Normal appearance L. Femur: Normal appearance R. Lower Leg: Normal appearance L. Lower Leg: Normal appearance R. Foot: Normal appearance L. Foot: Normal appearance Other Genitalia: Female CERVIX UTERUS ADNEXA: Cervix Length: 3.57 cm. Long and closed Right Ovary Not visualized. Left Ovary Not visualized. COMMENTS: Ms. Rosario is being seen for anatomical survey. An intracardiac echogenic focus was seen and a detailed ultrasound was performed. - Her medical history is not contributory. 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 - She had cell free DNA screening. Results were low-risk for all conditions assessed. - Ultrasound findings: The biometry measures consistent with dates. Views of the spine and aortic arch are suboptimal. An intracardiac echogenic focus was seen on today's ultrasound. The remainder of the anatomical survey is appropriate for the gestational age. - The cervix was assessed for risk of and placental location with vaginal ultrasound. The cervix is long and closed without funneling or dynamic changes. The placenta is anterior and is not low lying nor a previa. - An echogenic focus is an isolated, discrete lesion in the area of the papillary muscle. Echogenic foci have been associated with aneuploidy; however, this is generally in a setting where there are other ultrasonically diagnosable features of aneuploidy. The focus itself usually persists throughout the and into the period; however, it does not compromise or cardiac function. In the setting of normal cell free DNA results and otherwise a normal detailed ultrasound, the echogenic focus is considered a normal variant. - Plan: She has been scheduled to complete the detailed ultrasound by obtaining views of the spine and aortic arch. Carley Anthony MD Electronically Signed Final Report 11/07/2024 12:08 pm Yarelis Rick CNM IMG OB US PROCEDURES Final Re sult * Trichomonas vaginalis antigen (10/23/2024 3:06 PM EDT) Trichomonas vaginalis Negative Negative 10/23/2024 9:19 PM EDT [facility] Swab Vaginal structure / Unknown Non-blood Collection / Unknown 10/23/2024 3:06 PM EDT 10/23/2024 3:06 PM EDT Yarelis Rick CNM LAB MICROBIOLOGY - GENERAL OR DERABLES Final Result Performing Organization Address City/[facility]/ZIP Co de Phone Number [facility] [address] [place] [address], * Wet prep, genital (10/23/2024 3:06 PM EDT) Clue Cells, Wet Prep Negative Negative 10/23/2024 9:10 PM EDT [facility] Yeast, Wet Prep Negative Negative 10/23/2024 9:10 PM EDT [facility] Trichomonas, Wet Prep Indeterminate Negative 10/23/2024 9:10 PM EDT [facility] Comment:Refer to Trichomonas antigen. Swab Vaginal structure / Unknown Non-blood Collection / Unknown 10/23/2024 3:06 PM EDT 10/23/2024 3:06 PM EDT Yarelis Rick [facility] MICROBIOLOGY - GENERAL OR DERABLES Final Result Performing Organization Address [facility]/ZIP Co de Phone Number [facility] [address] [place] [address], * (ABNORMAL) CBC auto differential (10/23/2024 2:59 PM EDT) Only the most recent of2 resultswithin the time period is included. WBC 7.4 4.8 - 10.8 K/mcL LAB HEMETOLOGY METHOD 10/23/2024 7:10 PM EDT [facility] RBC 3.80 3.80 - 4.80 M/mcL LAB HEMETOLOGY METHOD 10/23/2024 7:10 PM EDT [facility] Hemoglobin 10.8(L) 11.5 - 16.0 g/dL LAB HEMETOLOGY METHOD 10/23/2024 7:10 PM EDT [facility] Hematocrit 33.5(L) 35.0 - 47.0 % LAB HEMETOLOGY METHOD 10/23/2024 7:10 PM EDT [facility] MCV 89.1 79.0 - 98.0 FL LAB HEMETOLOGY METHOD 10/23/2024 7:10 PM EDT [facility] MCH 28.7 27.0 - 32.0 pcg LAB HEMETOLOGY METHOD 10/23/2024 7:10 PM EDT [facility] MCHC 32.2 32.0 - 37.0 g/dL LAB HEMETOLOGY METHOD 10/23/2024 7:10 PM EDT [facility] RDW 14.9 11.0 - 15.0 % LAB HEMETOLOGY METHOD 10/23/2024 7:10 PM EDT [facility] Platelets 128(L) 130 - 400 K/mcL LAB HEMETOLOGY METHOD [facility]24 [facility] MPV 12.2(H) 7.0 - 11.0 FL LAB HEMETOLOGY METHOD 10/23/2024 7:10 PM EDT [facility] NRBC 0.0 <1.0 % LAB HEMETOLOGY METHOD 10/23/2024 7:10 PM EDT [facility] NRBC Absolute 0.00 <0.10 K/mcL LAB HEMETOLOGY METHOD 10/23/2024 7:10 PM EDT [facility] Neutrophils Relative 72.2 % LAB HEMETOLOGY METHOD 10/23/2024 7:10 PM EDT [facility] Lymphocytes Relative 18.0 % LAB HEMETOLOGY METHOD 10/23/2024 7:10 PM EDT [facility] Monocytes Relative 7.3 % LAB HEMETOLOGY METHOD 10/23/2024 7:10 PM EDT [facility] Eosinophils Relative 1.5 % LAB HEMETOLOGY METHOD 10/23/2024 7:10 PM EDT [facility] Basophils Relative 0.3 % LAB HEMETOLOGY METHOD 10/23/2024 7:10 PM EDT [facility] Immature Granulocytes Relative 0.7 % LAB HEMETOLOGY METHOD 10/23/2024 7:10 PM EDT [facility] Neutrophils Absolute 5.34 1.50 - 7.00 K/mcL LAB HEMETOLOGY METHOD 10/23/2024 7:10 PM EDT [facility] Lymphocytes Absolute 1.33 1.00 - 5.00 K/mcL LAB HEMETOLOGY METHOD 10/23/2024 7:10 PM EDT [facility] Monocytes Absolute 0.54 0.20 - 1.00 K/mcL LAB HEMETOLOGY METHOD 10/23/2024 7:10 PM EDT [facility] Eosinophils Absolute 0.11 0.00 - 0.50 K/mcL LAB HEMETOLOGY METHOD 10/23/2024 7:10 PM EDT [facility] Basophils Absolute 0.02 0.00 - 0.20 K/mcL LAB HEMETOLOGY METHOD 10/23/2024 7:10 PM EDT [facility] Immature Granulocytes Absolute 0.05(H) 0.00 - 0.03 K/mcL LAB HEMETOLOGY METHOD 10/23/2024 7:10 PM EDT [facility] Blood Venous blood specimen / Unknown Venipuncture / Unknown 10/23/2024 2:59 PM EDT 10/23/2024 2:59 PM EDT us Yarelis Rick [facility] BLOOD ORDERABLES Final Re sult [facility] [address] [place] [address], * Alpha fetoprotein, maternal (10/23/2024 2:59 PM EDT) Physician Phone Number [phone] 10/29/2024 9:17 AM EDT [facility] Notes to Laboratory Not Provided 10/29/2024 9:17 AM EDT [facility] Weight (lbs) 115 10/29/2024 9:17 AM EDT [facility] Expected Due Date (MM/DD/YYYY) [id number] 10/29/2024 9:17 AM EDT [facility] Expected Due Date Based On? Ultrasound 10/29/2024 9:17 AM EDT [facility] Twin ? No - Singletons 10/29/2024 9:17 AM EDT [facility] Race 10/29/2024 9:17 AM EDT [facility] Insulin Dependent Diabetic? No 10/29/2024 9:17 AM EDT [facility] Does Patient Currently Smoke Cigarettes? No 10/29/2024 9:17 AM EDT [facility] Repeat Screen for Current ? No 10/29/2024 9:17 AM EDT [facility] Previous w/ Neural Tube Defect? No 10/29/2024 9:17 AM EDT [facility] IVF ? No 10/29/2024 9:17 AM EDT [facility] Screen Result Negative Negative 10/29/2024 9:17 AM EDT [facility] Age at JIM (years) 19 10/29/2024 9:17 AM EDT [facility] Gestational Age (weeks) 19 10/29/2024 9:17 AM EDT [facility] Gestational Age (days) 2 10/29/2024 9:17 AM EDT [facility] Weight (lbs) 115 10/29/2024 9:17 AM EDT [facility] Multiple Gestation Single 10/29/2024 9:17 AM EDT [facility] Ethnic Origin 10/29/2024 9:17 AM EDT [facility] Insulin Dependent Diabetes None 10/29/2024 9:17 AM EDT [facility] Smoker? No 10/29/2024 9:17 AM EDT [facility] AFP 73.5 ng/mL 10/29/2024 9:17 AM EDT [facility] AFP MOM 1.26 10/29/2024 9:17 AM EDT [facility] Gestational Age Method US JIM 10/29/2024 9:17 AM EDT [facility] Comment: The gestational age is based on an JIM of 03/17/25 as determined by ultrasound. Interpretation SeeBelow 10/29/2024 9:17 AM EDT [facility] Comment: This is the initial sample received at [facility] for MSAFP SCREEN NEGATIVE FOR NEURAL TUBE DEFECTS. Additional Test Information: The MSAFP does not provide a risk estimate or a diagnosis. Incorrect or missing information may considerably alter results. A positive report is indicated when the AFP MOM is greater than or equal to 2.20. Maternal weights less than 65 lbs or greater than 440 lbs are truncated and the AFP MOM is not adjusted beyond those limits. Assessment is adjusted for insulin-dependent diabetic status, weight, race and smoking. Previous pregnancies affected with a neural tube defect may significantly affect results. Test performed at [facility], [address] , [place] [address] Simin Carney MD, PhD - Ultra Sound Technician Blood Venous blood specimen / Unknown Venipuncture / Unknown 10/23/2024 2:59 PM EDT 10/23/2024 2:59 PM EDT Yarelis Rick [facility] BLOOD ORDERABLES Edited R esult - Final [facility] [address] [place] [address] * Chlamydia trachomatis and Neisseria gonorrhoeae molecular study (10/23/2024 2:50 PM EDT) Neisseria gonorrhoeae PCR Negative Negative LAB MOLECULAR DIAGNOSTICS METHOD 10/24/2024 9:24 AM EDT [facility] Chlamydia trachomatis PCR Negative Negative LAB MOLECULAR DIAGNOSTICS METHOD 10/24/2024 9:24 AM EDT [facility] Swab Cervix uteri structure / Unknown Non-blood Collection / Unknown 10/23/2024 2:50 PM EDT 10/23/2024 2:50 PM EDT Yarelis [facility] MICROBIOLOGY - GENERAL OR DERABLES Final Result [facility] [address] [place] [address], [place] [phone] * Pap smear (10/23/2024 2:50 PM EDT) Interpretation Negative for intraepithelial lesion or malignancy 10/28/2024 11:58 AM EDT [facility] General Categorization Negative 10/28/2024 11:58 AM EDT [facility] Specimen Adequacy Satisfactory for evaluation, endocervical/ruggiero sformation zone component present 10/28/2024 11:58 AM EDT [facility] Pap Methodology Liquid Based Pap Test 10/28/2024 11:58 AM EDT [facility] Disclaimer The Pap test is a screening test which carries an inherent false negative rate. These test results should be correlated with the patient's clinical findings and history. This Pap test was processed using an automated screening system. Technical cytopathology services provided by [facility], at [address] [place] [address] (CLIA # [id number]/Eddie Santillan MD, Ultra Sound Technician.) 10/28/2024 11:58 AM EDT [facility] Console Pap Interpretation Reported 10/28/2024 11:58 AM EDT [facility] Brushing/Spatula Cervix uteri structure / Unknown 10/23/2024 2:50 PM EDT 10/23/2024 2:50 PM EDT Yarelis GONZALEZ LAB CYTOLOGY ORDERABLES Final Result [facility] [address] [place] [address], [place] [phone] * US OB Less 14 Wks Single or First Gestation (09/10/2024 9:33 AM EDT) Anatomical Region Laterality Modality Body Ultrasound Yarelis Rick CN IMG OB US PROCEDURES Final Re sult * US OB 14+ Wks Single or First Gestation (09/10/2024) Anatomical Region Laterality Modality Body Ultrasound Yarelis Rick CN IMG OB US PROCEDURES Final Re sult * Panorama test (08/25/2024 8:32 AM EDT) Blood Venous blood specimen / Unknown Yarelis Rick [facility] BLOOD ORDERABLES Final Re sult * Hepatitis C antibody (08/20/2024 11:39 AM EDT) Hepatitis C Antibody Negative Negative LAB CHEMISTRY METHOD 08/20/2024 3:04 PM EDT [facility] Blood Venous blood specimen / Unknown Venipuncture / Unknown 08/20/2024 11:39 AM EDT 08/20/2024 11:39 AM EDT Yarelis Rick [facility] BLOOD ORDERABLES Final Re sult [facility] [address] [place] [address], * HIV 1,2 antibody, p24 antigen with reflex to differentiation (08/20/2024 11:39 AM EDT) HIV Combo AB/AG Negative Negative LAB CHEMISTRY METHOD 08/20/2024 3:05 PM EDT [facility] Blood Venous blood specimen / Unknown Venipuncture / Unknown 08/20/2024 11:39 AM EDT 08/20/2024 11:39 AM EDT Narrative [facility] - 08/20/2024 3:05 PM EDT This assay is a 4th generation assay allowing for earlier detection of HIV infection by detecting the presence of the HIV-1 p24 antigen as well as the traditional antibodies to HIV type 1 (including group O) and type 2. Use of a 4th generation assay is the current CDC recommendation for HIV screening. Yarelis Rick [facility] BLOOD ORDERABLES Final Re sult Performing Organization Address [facility] Co de Phone Number [facility] [address] [place] [address], * Hepatitis B surface antigen with reflex to confirmation (08/20/2024 11:39 AM EDT) Hepatitis B Surface Ag Negative Negative LAB CHEMISTRY METHOD 08/20/2024 2:36 PM EDT [facility] Blood Venous blood specimen / Unknown Venipuncture / Unknown 08/20/2024 11:39 AM EDT 08/20/2024 11:39 AM EDT Narrative [facility] - 08/20/2024 2:36 PM EDT Over the counter supplements containing high doses of biotin may interfere with this assay. If interference is suspected, patients shoud be retested after refraining from biotin supplements for 72 hours. Yarelis [facility] BLOOD ORDERABLES Final Re sult Performing Organization Address [facility] de Phone Number [facility] [address] [place] [address], * Treponema pallidum antibody with reflex to RPR and particle agglutination (08/20/2024 11:39 AM EDT) T. Pallidum Antibodies Negative Negative LAB CHEMISTRY METHOD 08/20/2024 3:22 PM EDT [facility] Blood Venous blood specimen / Unknown Venipuncture / Unknown 08/20/2024 11:39 AM EDT 08/20/2024 11:39 AM EDT Yarelis Rick [facility] BLOOD ORDERABLES Final Re sult [facility] [address] [place] [address], * Venipuncture charge (08/20/2024 11:39 AM EDT) Extra Tube Hold for add-ons. 08/20/2024 1:02 PM EDT [facility] ([place]) Comment:Auto resulted. Blood Venous blood specimen / Unknown Venipuncture / Unknown 08/20/2024 11:39 AM EDT 08/20/2024 11:39 AM EDT Yarelis Rick [facility] BLOOD ORDERABLES Final Re sult Performing Organization Address City/[facility]/ZIP Co de Phone Number [facility] ([place] [place], * Drug abuse screen expanded with reflex confirmation, urine (08/20/2024 11:39 AM EDT) Amphetamine Screen, Ur Negative Negative LAB CHEMISTRY METHOD 08/20/2024 9:04 PM EDT [facility] Comment:Certain OTC medicati ons containing ephedrine, phenylephrine, pseudoephedrine and phenylpropanolamine can cause false positive results. Barbiturate Screen, Ur Negative Negative LAB CHEMISTRY METHOD 08/20/2024 9:04 PM EDT [facility] Benzodiazepine Screen, Ur Negative Negative LAB CHEMISTRY METHOD 08/20/2024 9:04 PM EDT [facility] Cocaine Screen, Ur Negative Negative LAB CHEMISTRY METHOD 08/20/2024 9:04 PM EDT [facility] Opiate Screen, Ur Negative Negative LAB CHEMISTRY METHOD 08/20/2024 9:04 PM EDT [facility] Cannabinoid (THC) Screen, Ur Negative Negative LAB CHEMISTRY METHOD 08/20/2024 9:04 PM EDT [facility] Comment:Specimens from patie nts taking pantoprazole sodium (Protonix) have been shown to produce false positive results. Fentanyl, Ur Negative Negative LAB CHEMISTRY METHOD 08/20/2024 9:04 PM EDT [facility] Oxycodone Screen, Ur Negative Negative LAB CHEMISTRY METHOD 08/20/2024 9:04 PM EDT [facility] Urine Urine specimen obtained by clean catch procedure / Unknown Non-blood Collection / Unknown 08/20/2024 11:39 AM EDT 08/20/2024 11:39 AM EDT Narrative [facility] - 08/20/2024 9:04 PM EDT Assay cutoffs: Amphetamines 1000 ng/mL Barbiturates 200 ng/mL Benzodiazepines 200 ng/mL Cocaine 300 ng/mL Fentanyl 1 ng/mL Opiates 300 ng/mL Oxycodone 100 ng/mL THC 50 ng/mL Semi-quantitative assay for screening purposes only. Unconfirmed screening result should not be used for non-medical purposes. *POSITIVE RESULTS ARE AUTOMATICALLY SENT FOR ALTERNATE METHOD CONFIRMATION* Yarelis Rick [facility] URINE ORDERABLES Final Re sult [facility] [address] [place] [address], * Rubella antibody IgG (08/20/2024 11:39 AM EDT) Rubella IgG Quant 30.5 >=10.0 I Unit/mL LAB CHEMISTRY METHOD 08/20/2024 2:35 PM EDT [facility] Rubella IgG Antibody Interp Positive Positive LAB CHEMISTRY METHOD 08/20/2024 2:35 PM EDT [facility] Blood Venous blood specimen / Unknown Venipuncture / Unknown 08/20/2024 11:39 AM EDT 08/20/2024 11:39 AM EDT Yarelis Rick [facility] BLOOD ORDERABLES Final Re sult Performing Organization Address [facility]/ZIP Co de Phone Number [facility] [address] [place] [address], [place] [phone] * Type and screen (08/20/2024 11:39 AM EDT) Pathologist [facility] A 08/20/2024 4:52 PM EDT [facility] Rh Type Positive 08/20/2024 4:52 PM EDT [facility] Antibody Screen Negative 08/20/2024 4:52 PM EDT [facility] Blood Venous blood specimen / Unknown Venipuncture / Unknown 08/20/2024 11:39 AM EDT 08/20/2024 11:39 AM EDT Yarelis Rick [facility] BLOOD BANK TEST ORDERABLE S Final Result Performing Organization Address [facility]/ZIP Co de Phone Number [facility] [address] [place] [address], [place] [phone] * Culture urine (08/20/2024 11:39 AM EDT) [facility] Culture, Urine 50,000-99,000 CFU/mL Mixed urogenital anthony, no uropathogens present. Suggest repeat specimen if clinically indicated. 08/22/2024 12:20 PM EDT [facility] Urine Urine specimen obtained by clean catch procedure / Unknown Non-blood Collection / Unknown 08/20/2024 11:39 AM EDT 08/20/2024 11:39 AM EDT Yarelis Rick [facility] MICROBIOLOGY - GENERAL OR DERABLES Final Result Performing Organization Address [facility]/ZIP Co de Phone Number [facility] [address] [place] [address], [place] [phone] * (ABNORMAL) Varicella zoster antibody IgG (08/20/2024 11:39 AM EDT) Varicella IgG Negative( A) Positive LAB CHEMISTRY METHOD 08/20/2024 3:00 PM EDT [facility] Varicella Zoster IgG 0.92(L) >=1.00 S/CO LAB CHEMISTRY METHOD 08/20/2024 3:00 PM EDT [facility] Blood Venous blood specimen / Unknown Venipuncture / Unknown 08/20/2024 11:39 AM EDT 08/20/2024 11:39 AM EDT Narrative [facility] - 08/20/2024 3:00 PM EDT Interpretation >= 1.00 S/CO is considered to be consistent with Immunity Yarelis Rick [facility] BLOOD ORDERABLES Final Re sult [facility] [address] [place] [address], from Last 3 Months Insurance [facility] [employer] Care Teams Community Organization Director Relationship Specialty Start Date End Date Mick Johnson MD [address] [place] [address] Dr Topher [place] PCP - General 08/29/23
[2024-11-19 08:37] LABS: Appearance Urine Clear; Glucose Urine UA Negative (Negative); PH 8.5 (5.0-9.0); Specific Gravity - Urine 1.015 (1.005-1.025); UMIC TRIGGER UACC YES
[2024-11-19 08:42] LABS: IDNOW Serial# 152EDE1D; Strep A Nucleic Acid Negative (Negative)
[2024-11-19 08:43] LABS: UACC Culture Trigger YES
--- NOTE | 2024-11-19 08:44 | PC.NURSE ---
patient arrived via em[facility], states that she started with a runny nose yesterday assumed it was allergies, today around 0100 patient woke up with sore throat, nausea, vomiting and back pain. patient is currently 23 weeks . patient is alert and oriented x3, noted to be in sinus tach low 100s. heart rate obtained with doppler 145-150s. patient states she is having normal movement, no abd pain/cramping/discharge/bleeding. #20 placed in patient left wrist, labs drawn and obtained.
[2024-11-19 08:46] LABS: Alanine Aminotransferase 11 U/L (0-31); Albumin Level 3.6 g/dL (3.5-5.0); Alkaline Phosphatase 55 U/L (39-117); Anion Gap 13 (12-20); Aspartate Amino Transferase 30 U/L (5-31); Blood Urea Nitrogen 5 mg/dL (9-16); Calcium 8.6 mg/dL (8.4-10.2); Carbon Dioxide 18 mmol/L (22-29); Chloride 109 mmol/L (96-108); Creatinine Clr Calc Pharmacy 146.6; Estimated Glomerular Filt Rate > 60; Lipase 15 U/L (8-78); Magnesium 1.8 mg/dL (1.6-2.6); Potassium 3.7 mmol/L (3.3-5.1); Sodium 136 mmol/L (135-145); Total Protein 6.4 g/dL (6.5-8.0)
[2024-11-19 09:00] LABS: Resp Syncy Virus RNA Qual PCR NEGATIVE (Negative); SARS COV2 PCR INHOUSE NEGATIVE (Negative)
[2024-11-19 10:12] VITALS: BP 102/56; PULSE 88; RESP 16; TEMP 37.3; O2SAT 98
== END 2024-11-19 11:39 | disposition home or self-care (01) ==
PROVIDERS: Physician Assistant; Emergency Provider Emergency Medicine
DX: O23.42 Unspecified infection of urinary tract in pregnancy, second trimester (principal); N39.0 Urinary tract infection, site not specified; O21.2 Late vomiting of pregnancy; Z3A.23 23 weeks gestation of pregnancy
CPT/HCPCS: 36415; 80048; 80076; 81001; 83690; 83735; 84702; 85025; 87086; 87637; 87651; 96361; 96374; 99283; 99284; J1200